=== PATIENT | female | born 1995 | race Two or more races ===

== ENCOUNTER 2017-06-09 08:10 | Emergency (ER) | payer SELFPAY ==
[~2017-06-09] VITALS: Ht 152.4 cm; Wt 117.9 kg
--- NOTE | ~2017-06-09 | CR142 ---
[facility] A Service of [facility] & [facility] RADIOLOGY TEXT RESULTS PATIENT: CARMINA CHAVEZ LOCATION: [facility] : [birth year] UNIT #: [id number] AGE: [address]: JOSE SU SEX: F ORDER DR: [id number] [facility] [address] [place], [place] [address] [id number] E MR#: [id number] Acc #: [id number] NAME: CARMINA CHAVEZ : 1995 SEX: F STUDY DATE/TIME: 06/09/2017 8:38 UNIT: [facility] ROOM: STUDY DESCRIPTION: CR Hand Min 3 Views Rt Attending Physician: Jose Su Aprn Ordering Physician: Jose Su Aprn Primary Care Physician: Primary Care Physician No MEDICAL IMAGING REPORT This report is preliminary unless electronic signature is present EXAM Right hand INDICTION Slipped in shower and landed on right hand with pain. FINDINGS Three views of the right hand were obtained. There is no comparison. The patient's fingers are slightly flexed in all images. No fractures are visible. IMPRESSION The patient's fingers are slightly flexed. I cannot identify any fractures or dislocations. Dictated by... Haim Daniel M.D. THIS IS AN ELECTRONICALLY VERIFIED REPORT Haim Daniel M.D. at 06/09/2017 2:51 PM MELI/bina TD: 06/09/2017 10:55 JOB #: [id number] MEDICAL IMAGING REPORT Page 1 of 1 COPY
--- NOTE | ~2017-06-09 | CR282 ---
[facility] A Service of [facility] & [facility] RADIOLOGY TEXT RESULTS PATIENT: CARMINA CHAVEZ LOCATION: [facility] : [birth year] UNIT #: [id number] AGE: [address]: JOSE SU SEX: F ORDER DR: [id number] [facility] [address] [place], [place] [address] [id number] E MR#: [id number] Acc #: [id number] NAME: CARMINA CHAVEZ : 1995 SEX: F STUDY DATE/TIME: 06/09/2017 8:39 UNIT: [facility] ROOM: STUDY DESCRIPTION: CR Wrist Min 3 View Rt Attending Physician: Jose Su Aprn Ordering Physician: Jose Su Aprn Primary Care Physician: No Primary Care Physician MEDICAL IMAGING REPORT This report is preliminary unless electronic signature is present EXAM Right wrist, 06/09. INDICATIONS Wrist pain and bruising and swelling after falling in shower today. FINDINGS Wrist evaluation in multiple projections shows normal mineralization of the bony structures about the wrist and satisfactory articular relationship of the radius and ulna to the proximal carpal row and of the distal carpal segments to the metacarpal bases. There is no indication of fracture or dislocation, and no soft tissue radiopaque foreign body is present. No congenital defects are apparent. IMPRESSION Normal wrist. Dictated by... Rajesh Lainez Jr., M.D. THIS IS AN ELECTRONICALLY VERIFIED REPORT Rajesh Lainez Jr., M.D. at 06/10/2017 4:33 PM TISHA/margarito TD: 06/09/2017 12:20 JOB #: [id number] MEDICAL IMAGING REPORT Page 1 of 1 COPY
== END 2017-06-09 09:10 | disposition home or self-care (01) ==
LOC: CED 08:10
DX: S60.221A Contusion of right hand, initial encounter (principal); S60.211A Contusion of right wrist, initial encounter; W18.30XA Fall on same level, unspecified, initial encounter; Y92.009 Unspecified place in unspecified non-institutional (private) residence as the place of occurrence of the external cause
CPT/HCPCS: 29260; 73110; 73130; 99283